=== PATIENT | male | born 1995 | race Caucasian/White ===

== ENCOUNTER 2025-05-22 15:02 | Emergency (ER) | payer BC ==
[~2025-05-22] VITALS: Ht 180.3 cm; Wt 76.7 kg
[2025-05-22 15:17] VITALS: BP 114/63; TEMP 98; O2SAT 97
[2025-05-22 17:00] LABS: APPEARANCE,URINE CLEAR (CLEAR); BLOOD, URINE NEGATIVE Ery/uL (NEGATIVE); LEUKOCYTE ESTERASE ,URINE NEGATIVE (NEGATIVE); NITRITE, URINE POSITIVE (NEGATIVE); UGLUCOSE NEGATIVE (NEGATIVE)
[2025-05-22] MEDS ORDERED: CEPH-570 PO (17:05)
[2025-05-22] MEDS ORDERED: IBUP-1490 PO (17:05)
[2025-05-22 17:21] LABS: ADD URINE CULTURE YES; SQUAMOUS EPITHELIAL CELL,UR Few /HPF (None Seen)
== END 2025-05-22 17:28 | disposition home or self-care (01) ==
LOC: ER 15:02
DX: N39.0 Urinary tract infection, site not specified (principal); N43.3 Hydrocele, unspecified
CPT/HCPCS: 76870-TC; 81001; 87086-TC